=== PATIENT | female | born 1985 | race Caucasian/White ===

== ENCOUNTER 2019-02-23 14:54 | Emergency (ER) | payer SELFPAY ==
[~2019-02-23] VITALS: Ht 162.6 cm; Wt 65.0 kg
[2019-02-23 15:09] VITALS: BP 126/83
== END 2019-02-23 17:12 | disposition home or self-care (01) ==
LOC: ED 15:46
DX: R10.2 Pelvic and perineal pain (principal); Z72.9 Problem related to lifestyle, unspecified; Z87.891 Personal history of nicotine dependence
CPT/HCPCS: 81003; 81025; 87210; 87491; 87591; 87808; 96372; 99283; J0696